=== PATIENT | female | born 1950 | race Caucasian/White ===

== ENCOUNTER 2022-07-14 08:48 | Emergency (ER) | payer OTHER ==
[~2022-07-14] VITALS: Ht 165.1 cm; Wt 56.7 kg
[2022-07-14] MEDS ORDERED: TOPROL XL25 M1 (09:30)
[2022-07-14] MEDS ORDERED: PEPCID AC20 MG (09:30)
[2022-07-14] MEDS ORDERED: ATORVASTATIN CA10 MG (09:30)
[2022-07-14] MEDS ORDERED: COZAAR100 MG (09:30)
[2022-07-14] MEDS ORDERED: AMLODIPINE-OLM1 EAC2 (09:30)
[2022-07-14] MEDS ORDERED: MOLNUPIRAVIR (200 MG PO (10:37)
== END 2022-07-14 10:42 | disposition home or self-care (01) ==
LOC: ER 08:48
DX: U07.1 COVID-19 (principal); B34.9 Viral infection, unspecified; Z88.0 Allergy status to penicillin; Z91.011 Allergy to milk products